=== PATIENT | male | born 1940 | race Caucasian/White ===

== ENCOUNTER 2023-07-07 16:20 | Inpatient (IN) | payer OTHER ==
[2023-07-07] MEDS ORDERED: FAMOTIDINE 20 MG/2 ML VIAL IV ONE (17:18)
[2023-07-07] MEDS ORDERED: NA CHLORIDE 0.9% 1,000 ML ONE ×2 (17:18→19:58)
[2023-07-07] MEDS ORDERED: MAGNESIUM SULFATE 1 gm IVPB 1 GM/100 ML BAG IV ONE (17:18)
--- NOTE | 2023-07-07 17:44 | RAD REPORT ---
EXAM DESCRIPTION: RAD - Chest Single View - 07/07/2023 5:32 pm CLINICAL HISTORY: CHEST PAIN COMPARISON: <Comparisons> FINDINGS: Lines: None. Lungs: No evidence of edema or pneumonia. Pleural: No significant pleural effusions or pneumothorax. Cardiac: The heart size is within normal limits. Mediastinum: Within normal limits. Bones: No acute fractures. Other: None IMPRESSION: No acute cardiopulmonary disease.
[2023-07-07 17:47] LABS: Absolute Lymphocytes (CBC) 0.8 K/uL (0.7-4.9); Absolute Monocytes 0.7 K/uL (0.1-1.3); Absolute Neutrophil 7.3 K/uL (1.8-8.0); Basophils % 0.3 % (0-1.3); Eosinophils % 0.3 % (0-4.4); Hematocrit 36.2 % (39.6-49.0); Hemoglobin 12.3 g/dL (13.6-17.9); Lymphocytes % 9.3 % (15.3-44.8); MCH 31.2 pg (27.0-35.0); MCV 91.7 fL (80-100); MPV 8.3 fL (7.6-11.3); Monocytes % 8.2 % (3.3-12.3); Neutrophils % 81.9 % (41.7-73.7); Nucleated Red Blood Cells % 0.1 % (0-0); Platelets 351 thou/uL (152-406); RBC Red Blood Cell Count 3.95 M/uL (4.33-5.43); Red Cell Distribution Width 14.2 % (12.1-15.2)
[2023-07-07] MEDS ORDERED: DIGOXIN 0.25 MG/ML AMP ONE (17:56)
[2023-07-07 17:57] LABS: PT Prothrombin Time 13.4 SECONDS (9.5-12.5); Protime INR 1.23
[2023-07-07 18:16] LABS: Albumin/Globulin Ratio 0.4 (1.1-1.8); Anion Gap 10.6 mEq/L (5.0-15.0); Bilirubin Direct 0.1 mg/dL (0-0.2); Bilirubin Indirect, Calculated 0.3 mg/dL (0.2-0.8); Bilirubin Total 0.4 mg/dL (0.2-1.0); Globulin 5.2 g/dL (2.3-3.5); Magnesium 2.4 mg/dL (1.6-2.4); Potassium 3.6 mEq/L (3.5-5.1); Protein, Total 7.2 g/dL (6.4-8.2); Troponin High Sensitivity 22.4 pg/mL (<58.9)
[2023-07-07 18:20] LABS: Thyroid Stimulating Hormone 5.58 uIU/mL (0.358-3.740)
--- NOTE | 2023-07-07 18:32 | EDPHYS ---
Physician Documentation [facility] Name: Jeff Summers Age: 83 yrs Sex: Male : 1940 Arrival Date: 07/07/2023 Time: 16:20 Bed 2 Private MD: ED Physician Eliezer Garber HPI: 07/06 16:40 This 83 yrs old Male presents to ER via EMS with complaints of AFIB w/RVR. phyllis Historical: - Allergies: 16:36 No Known Allergies; hb - Home Meds: 16:36 Victoza 2-Maurice 0.6 mg/0.1 mL (18 mg/3 mL) subcutaneous Pen Injector 1.2 mg daily hb [Active]; Tresiba FlexTouch U-100 100 unit/mL (3 mL) subcutaneous Insulin Pen 60 units daily [Active]; lisinopril 10 mg Oral tablet daily [Active]; - PMHx: 16:36 Prostate Cancer; DM2; Hypertension; hb - Immunization history:: Adult Immunizations up to date. - Social history:: Smoking status: Patient denies any tobacco usage or history of. ROS: 16:42 Constitutional: Negative for fever, chills, and weight loss, Eyes: Negative for injury, phyllis pain, redness, and discharge, ENT: Negative for injury, pain, and discharge, Neck: Negative for injury, pain, and swelling, Abdomen/GI: Negative for abdominal pain, nausea, vomiting, diarrhea, and constipation, Back: Negative for injury and pain, : Negative for injury, bleeding, discharge, and swelling, MS/Extremity: Negative for injury and deformity, Skin: Negative for injury, rash, and discoloration, Neuro: Negative for headache, weakness, numbness, tingling, and seizure, Psych: Negative for depression, anxiety, suicide ideation, homicidal ideation, and hallucinations, Allergy/Immunology: Negative for hives, rash, and allergies, Endocrine: Negative for neck swelling, polydipsia, polyuria, polyphagia, and marked weight changes, Hematologic/Lymphatic: Negative for swollen nodes, abnormal bleeding, and unusual bruising, 16:42 Cardiovascular: Positive for palpitations, 16:42 Respiratory: Positive for shortness of breath, at rest. Exam: 16:42 Constitutional: This is a well developed, well nourished patient who is awake, alert, phyllis and in no acute distress. Head/Face: Normocephalic, atraumatic. Eyes: Pupils equal round and reactive to light, extra-ocular motions intact. Lids and lashes normal. Conjunctiva and sclera are non-icteric and not injected. Cornea within normal limits. Periorbital areas with no swelling, redness, or edema. ENT: Nares patent. No nasal discharge, no septal abnormalities noted. Tympanic membranes are normal and external auditory canals are clear. Oropharynx with no redness, swelling, or masses, exudates, or evidence of obstruction, uvula midline. Mucous membranes moist. Neck: Trachea midline, no thyromegaly or masses palpated, and no cervical lymphadenopathy. Supple, full range of motion without nuchal rigidity, or vertebral point tenderness. No Meningismus. Chest/axilla: Normal chest wall appearance and motion. Nontender with no deformity. No lesions are appreciated. Respiratory: Lungs have equal breath sounds bilaterally, clear to auscultation and percussion. No rales, rhonchi or wheezes noted. No increased work of breathing, no retractions or nasal flaring. Abdomen/GI: Soft, non-tender, with normal bowel sounds. No distension or tympany. No guarding or rebound. No evidence of tenderness throughout. Back: No spinal tenderness. No costovertebral tenderness. Full range of motion. Male : Normal genitalia with no discharge or lesions. Skin: Warm, dry with normal turgor. Normal color with no rashes, no lesions, and no evidence of cellulitis. MS/ Extremity: Pulses equal, no cyanosis. Neurovascular intact. Full, normal range of motion. Neuro: Awake and alert, GCS 15, oriented to person, place, time, and situation. Cranial nerves II-XII grossly intact. Motor strength 5/5 in all extremities. Sensory grossly intact. Cerebellar exam normal. Normal gait. Psych: Awake, alert, with orientation to person, place and time. Behavior, mood, and affect are within normal limits. 16:42 Cardiovascular: Rate: tachycardic, actual rate is 107 bpm, Rhythm: regular, Pulses: no pulse deficits are appreciated, Heart sounds: normal, Edema: is not appreciated, JVD: is not appreciated, Vital Signs: 16:28 BP 92 / 66; Pulse 107; Resp 19; Temp 98.4(TE); Pulse Ox 96% on R/A; Pain 2/10; hb 17:45 BP 101 / 82; Pulse 104; Resp 18; Pulse Ox 98% on R/A; ph 18:46 BP 118 / 85; Pulse 101; Resp 18; Pulse Ox 98% on R/A; ph 19:00 BP 127 / 74; Pulse 74; Resp 22; Pulse Ox 97% on R/A; km8 19:30 BP 104 / 77; Pulse 111; Resp 22; Pulse Ox 97% on R/A; km8 20:00 BP 119 / 80; Pulse 93; Resp 16; Pulse Ox 99% on R/A; km8 20:08 Weight 92.53 kg (R); km8 20:30 BP 97 / 59; Pulse 107; Resp 16; Pulse Ox 98% on R/A; km8 20:58 BP 112 / 63; Pulse 90; Resp 20; Pulse Ox 98% on R/A; km8 16:28 Pain Scale: Adult hb MDM: 16:29 Patient medically screened. phyllis 16:47 Differential diagnosis: Anemia Anxiety Reaction asthma, Bronchitis CHF exacerbation, phyllis Chronic Obstructive Pulmonary Disease arrythmia, dehydration, stress disorder, pneumonia, Pneumothorax pulmonary edema, Pulmonary Embolism reactive airway disease, Sepsis Unstable Angina. Antibiotic administration: Not indicated. Immunization status: Pneumococcal vaccine: within last 5 years. Influenza vaccine: within last 5 years. Data reviewed: vital signs, nurses notes, EMS record, lab test result(s), EKG, radiologic studies, plain films. Consideration of Admission/Observation Patient was admitted/placed on observation. Escalation of care including admission/observation considered. I considered the following discharge prescriptions or medication management in the emergency department Medications were administered in the Emergency Department. See MAR. Independent interpretation of the following test(s) in the Emergency Department EKG: See my EKG interpretation above. Test considered but Not performed: Ultrasound NO 2 D ECHO. Historians other than the Patient: EMS: EMS WELL INFORMED. PATIENT WELL INFORMED. Care significantly affected by the following chronic conditions: Diabetes, Hypertension, Cancer. Counseling: I had a detailed discussion with the patient and/or guardian regarding the historical points, exam findings, and any diagnostic results supporting the discharge/admit diagnosis, the presence of at least one elevated blood pressure reading (>120/80) during this emergency department visit, lab results, radiology results, the need for further work-up and treatment in the hospital. 07/06 16:31 Order name: Basic Metabolic Panel [facility] 07/06 16:31 Order name: CBC with Diff; Complete Time: 18:14 [facility] 07/06 16:31 Order name: LFT's [facility] 07/06 16:31 Order name: Magnesium [facility] 07/06 16:31 Order name: NT PRO-BNP [facility] 07/06 16:31 Order name: PT-INR; Complete Time: 18:14 [facility] 07/06 16:31 Order name: Troponin HS [facility] 07/06 16:31 Order name: TSH [facility] 07/06 16:31 Order name: Urinalysis w/ reflexes [facility] 07/06 16:39 Order name: SARS RAPID [facility] 07/06 16:39 Order name: Flu [facility] 07/06 16:39 Order name: Lactate w/ 2H reflex if indic.; Complete Time: 18:14 [facility] 07/06 16:39 Order name: Blood Culture Adult (2) [facility] 07/06 18:22 Order name: T4 Free EDMS 07/06 16:31 Order name: XRAY Chest (1 view); Complete Time: 18:14 [facility] 07/06 16:31 Order name: EKG; Complete Time: 16:32 [facility] 07/06 16:31 Order name: Cardiac monitoring; Complete Time: 17:57 [facility] 07/06 16:31 Order name: EKG - Nurse/Tech; Complete Time: 17:50 [facility] 07/06 16:31 Order name: IV Saline Lock; Complete Time: 17:50 [facility] 07/06 16:31 Order name: Labs collected and sent; Complete Time: 17:50 [facility] 07/06 16:31 Order name: O2 Per Protocol; Complete Time: 17:50 [facility] 07/06 16:31 Order name: O2 Sat Monitoring; Complete Time: 17:50 [facility] 07/06 16:42 Order name: Misc. Order; Complete Time: 18:44 [facility] 07/06 16:42 Order name: Dressing - Wound: BUTTOCK; Complete Time: 18:44 [facility] Administered Medications: 17:47 Drug: Magnesium Sulfate IVPB 1 grams IVPB once over 1 hrs Route: IVPB; Infused Over: 1 ph hrs; Site: left antecubital; 19:52 Follow up: Response: No adverse reaction; IV Status: Completed infusion; IV Intake: [id number] 17:47 Drug: NS 0.9% IV 500 ml IV at bolus once Route: IV; Rate: bolus; Site: left antecubital;ph 19:52 Follow up: IV Status: Completed infusion; IV Intake: 500ml km8 18:35 Drug: Digoxin IVP 0.5 mg IVP once Route: IVP; Site: left antecubital; ph 19:52 Follow up: Response: No adverse reaction km8 18:44 Drug: NS 0.9% IV 500 ml IV at bolus once Route: IV; Rate: bolus; Site: left antecubital;ph 19:53 Follow up: IV Status: Completed infusion; IV Intake: 500ml km8 18:44 Drug: Famotidine IVP 20 mg IVP once; dilute with 10 mL 0.9% NaCl; give over 2 minutes ph Route: IVP; Site: left antecubital; 19:53 Follow up: Response: No adverse reaction km8 20:10 Drug: NS 0.9% IV 1000 ml IV at 125 ml/hr continuous Route: IV; Rate: 125 ml/hr; Site: [facility] [place] left forearm; 20:55 Follow up: IV Status: Infusion continued upon admission km8 20:10 Drug: Metoprolol IVP 2.5 mg IVP once; Hold for SBP <100 or HR <60. Route: IVP; Site: [facility] [place] left forearm; 20:55 Follow up: Response: No adverse reaction; Cardiac rhythm changed 8 20:10 Drug: fentaNYL (PF) IVP 25 mcg IVP once Route: IVP; Site: left forearm; km8 20:54 Follow up: Response: No adverse reaction; Pain is decreased 8 20:12 Drug: Metoprolol PO 25 mg PO once Route: PO; km8 20:54 Follow up: Response: No adverse reaction 8 20:12 Drug: Enoxaparin Sub-Q 1 mg/kg Sub-Q once Route: Sub-Q; Site: left lower abdomen; km8 20:54 Follow up: Response: No adverse reaction 8 20:12 Drug: Ondansetron IVP 4 mg IVP once; over 2 minutes Route: IVP; Site: left forearm; km8 20:54 Follow up: Response: No adverse reaction 8 20:55 Not Given (Hemodynamic Parameters): metoprolol2.5 mg IVP once; Hold for SBP <100 or HR km8 <60. Disposition Summary: 07/07/23 18:32 Hospitalization Ordered Notes: Hospitalization Status: Inpatient Admission phyllis Provider: Isma Loomis cha Condition: Fair phyllis Problem: new phyllis Symptoms: have improved phyllis Bed/Room Type: Standard phyllis Location: Intensive Care Unit(07/07/23 20:49) rv1 Room Assignment: 2-(07/07/23 20:49) rv1 Diagnosis - Persistent atrial fibrillation - NEW ONSET phyllis - Dyspnea phyllis - Weakness phyllis - Unspecified kidney failure - INSUFFICENCY phyllis - Type 2 diabetes mellitus with hyperglycemia phyllis Forms: - Medication Reconciliation Form phyllis - SBAR form phyllis - Leadership Thank You Letter phyllis Signatures: Dispatcher [employer] EDEliezer Johnston MD MD cha Hall, Patricia, RN RN Ines Jordan, RN RN Shawna Donnelly rv1 Lexii Gleason RN RN km8 Corrections: (The following items were deleted from the chart) 20:49 18:32 Telemetry/MedSurg (Inpatient) phyllis rv1 20:49 18:32 phyllis rv1
--- NOTE | 2023-07-07 18:32 | ER ---
Nurse's Notes [facility] Name: Jeff Summers Age: 83 yrs Sex: Male : 1940 Arrival Date: 07/07/2023 Time: 16:20 Bed 2 Private MD: Diagnosis: Persistent atrial fibrillation-NEW ONSET;Dyspnea;Weakness;Unspecified kidney failure-INSUFFICENCY;Type 2 diabetes mellitus with hyperglycemia Presentation: 07/06 16:28 Chief complaint: EMS states: Toned out for generalized weakness and malaise, initial BP hb 100/62, HR 170s, AFIB w/RVR on 12 lead. Coronavirus screen: At this time, the client does not indicate any symptoms associated with coronavirus-19. Ebola Screen: No symptoms or risks identified at this time. Initial Sepsis Screen: Does the patient meet any 2 criteria? Yes No. Patient's initial sepsis screen is negative. Does the patient have a suspected source of infection? No. Patient's initial sepsis screen is negative. Risk Assessment: Do you want to hurt yourself or someone else? Patient reports no desire to harm self or others. Onset of symptoms was July 07, 2023. 16:28 Method Of Arrival: [facility] hb 16:28 Acuity: MITCH 2 hb 16:28 Care prior to arrival: Medication(s) given: Cardizem 25 mg IVP, Labetalol 10 MG IVP IV hb initiated. 20 GA, in the left forearm, Glucose check: 128. 16:29 Transition of care: FROM HOME. hb Triage Assessment: 16:36 General: Appears in no apparent distress. Behavior is calm, cooperative. Pain: Pain hb currently is 2 out of 10 on a pain scale. Neuro: Level of Consciousness is obeys commands, lethargic, Oriented to person, place, time, situation. Cardiovascular: Patient's skin is warm and dry. Rhythm is irregular. Respiratory: Respiratory effort is even, unlabored, Respiratory pattern is regular, symmetrical. Historical: - Allergies: 16:36 No Known Allergies; hb - Home Meds: 16:36 Victoza 2-Maurice 0.6 mg/0.1 mL (18 mg/3 mL) subcutaneous Pen Injector 1.2 mg daily hb [Active]; Tresiba FlexTouch U-100 100 unit/mL (3 mL) subcutaneous Insulin Pen 60 units daily [Active]; lisinopril 10 mg Oral tablet daily [Active]; - PMHx: 16:36 Prostate Cancer; DM2; Hypertension; hb - Immunization history:: Adult Immunizations up to date. - Social history:: Smoking status: Patient denies any tobacco usage or history of. Screenin:30 Abuse screen: Denies threats or abuse. Denies injuries from another. Nutritional km8 screening: No deficits noted. 19:30 [facility] ED Fall Risk Assessment (Adult) History of falling in the last 3 months, km8 including since admission Yes- single mechanical fall (1 pt) Confusion or Disorientation No (0 pts) Intoxicated or Sedated No (0 pts) Impaired Gait Yes (1 pt) Mobility Assist Device Used No (0 pt) Altered Elimination No (0 pt) Score/Fall Risk Level 0 - 2 = Low Risk Oriented to surroundings, Maintained a safe environment, Educated pt \T\ family on fall prevention, incl call for assistance when getting out of bed, Assessed \T\ reinforced patient's understanding of fall precautions, Provided non-skid footwear, Hourly rounding (assess needs \T\ fall precautionary measures) done, Used ambulatory aids as needed (educated on \T\ assisted with). Tuberculosis screening: No symptoms or risk factors identified. Assessment: 17:30 General: Appears in no apparent distress. Behavior is calm, cooperative, Denies fever, ph feeling ill. Pain: Complains of pain in buttocks. Neuro: Level of Consciousness is awake, alert, obeys commands, Oriented to person, place, time, situation. Cardiovascular: Denies chest pain, Capillary refill < 3 seconds in bilateral fingers Patient's skin is warm and dry. Rhythm is atrial fibrillation. Respiratory: Airway is patent Respiratory effort is even, unlabored. GI: No signs and/or symptoms were reported involving the gastrointestinal system. Derm: Skin is pink, warm \T\ dry. Derm: buttocks noted to be reddened and raw in appearance. Musculoskeletal: Circulation, motion, and sensation intact. Range of motion: intact in all extremities. 19:00 Reassessment: Patient appears in no apparent distress at this time. Patient and/or km8 family updated on plan of care and expected duration. Pain level reassessed. Patient is alert, oriented x 3, equal unlabored respirations, skin warm/dry/pink. General: Appears in no apparent distress. Behavior is calm, cooperative. Pain: Complains of pain in buttocks Pain currently is 5 out of 10 on a pain scale. Neuro: Level of Consciousness is awake, alert, obeys commands, Oriented to person, place, time, situation. Cardiovascular: Patient's skin is warm and dry. Respiratory: Airway is patent Respiratory effort is even, unlabored, Respiratory pattern is regular, symmetrical. 20:00 Reassessment: Patient appears in no apparent distress at this time. No changes from km8 previously documented assessment. Patient and/or family updated on plan of care and expected duration. Pain level reassessed. Patient is alert, oriented x 3, equal unlabored respirations, skin warm/dry/pink. 20:58 Reassessment: Patient appears in no apparent distress at this time. No changes from km8 previously documented assessment. Patient and/or family updated on plan of care and expected duration. Pain level reassessed. Patient is alert, oriented x 3, equal unlabored respirations, skin warm/dry/pink. Vital Signs: 16:28 BP 92 / 66; Pulse 107; Resp 19; Temp 98.4(TE); Pulse Ox 96% on R/A; Pain 2/10; hb 17:45 BP 101 / 82; Pulse 104; Resp 18; Pulse Ox 98% on R/A; ph 18:46 BP 118 / 85; Pulse 101; Resp 18; Pulse Ox 98% on R/A; ph 19:00 BP 127 / 74; Pulse 74; Resp 22; Pulse Ox 97% on R/A; km8 19:30 BP 104 / 77; Pulse 111; Resp 22; Pulse Ox 97% on R/A; km8 20:00 BP 119 / 80; Pulse 93; Resp 16; Pulse Ox 99% on R/A; km8 20:08 Weight 92.53 kg (R); km8 20:30 BP 97 / 59; Pulse 107; Resp 16; Pulse Ox 98% on R/A; km8 20:58 BP 112 / 63; Pulse 90; Resp 20; Pulse Ox 98% on R/A; km8 16:28 Pain Scale: Adult hb ED Course: 16:22 Patient arrived in ED. eb 16:29 Eliezer Garber MD is Attending Physician. phyllis 16:34 Triage completed. hb 16:36 Arm band placed on right wrist. hb 16:39 Patient has correct armband on for positive identification. Bed in low position. Call hb light in reach. Client placed on continuous cardiac and pulse oximetry monitoring. NIBP monitoring applied. diagnostics tech on. Pulse ox on. NIBP on. Warm blanket given. lifted up in bed w/ assistance. 17:01 Amanda Martines, RN is Primary Nurse. ph 17:34 XRAY Chest (1 view) In Process Unspecified. EDMS 17:34 EKG done, by ED staff, reviewed by Eliezer Garber MD. hb 18:29 Isma Loomis MD is Hospitalizing Provider. phyllis 18:46 No provider procedures requiring assistance completed. Maintain EMS IV. Dressing ph intact. Good blood return noted. Site clean \T\ dry. Gauge \T\ site: 20 LAC. Patient admitted, IV remains in place. 20:56 Provided Education on: admission process. [facility] Administered Medications: 17:47 Drug: Magnesium Sulfate IVPB 1 grams IVPB once over 1 hrs Route: IVPB; Infused Over: 1 ph hrs; Site: left antecubital; 19:52 Follow up: Response: No adverse reaction; IV Status: Completed infusion; IV Intake: [id number] 17:47 Drug: NS 0.9% IV 500 ml IV at bolus once Route: IV; Rate: bolus; Site: left antecubital;ph 19:52 Follow up: IV Status: Completed infusion; IV Intake: 500ml [facility] 18:35 Drug: Digoxin IVP 0.5 mg IVP once Route: IVP; Site: left antecubital; ph 19:52 Follow up: Response: No adverse reaction 8 18:44 Drug: NS 0.9% IV 500 ml IV at bolus once Route: IV; Rate: bolus; Site: left antecubital;ph 19:53 Follow up: IV Status: Completed infusion; IV Intake: 500ml [facility] 18:44 Drug: Famotidine IVP 20 mg IVP once; dilute with 10 mL 0.9% NaCl; give over 2 minutes ph Route: IVP; Site: left antecubital; 19:53 Follow up: Response: No adverse reaction [facility] 20:10 Drug: NS 0.9% IV 1000 ml IV at 125 ml/hr continuous Route: IV; Rate: 125 ml/hr; Site: [facility] left forearm; 20:55 Follow up: IV Status: Infusion continued upon admission km8 20:10 Drug: Metoprolol IVP 2.5 mg IVP once; Hold for SBP <100 or HR <60. Route: IVP; Site: [facility] left forearm; 20:55 Follow up: Response: No adverse reaction; Cardiac rhythm changed km8 20:10 Drug: fentaNYL (PF) IVP 25 mcg IVP once Route: IVP; Site: left forearm; km8 20:54 Follow up: Response: No adverse reaction; Pain is decreased 8 20:12 Drug: Metoprolol PO 25 mg PO once Route: PO; km8 20:54 Follow up: Response: No adverse reaction 8 20:12 Drug: Enoxaparin Sub-Q 1 mg/kg Sub-Q once Route: Sub-Q; Site: left lower abdomen; km8 20:54 Follow up: Response: No adverse reaction 8 20:12 Drug: Ondansetron IVP 4 mg IVP once; over 2 minutes Route: IVP; Site: left forearm; km8 20:54 Follow up: Response: No adverse reaction 8 20:55 Not Given (Hemodynamic Parameters): metoprolol2.5 mg IVP once; Hold for SBP <100 or HR km8 <60. Medication: 20:56 VIS not applicable for this client. km8 Intake: 19:52 IV: 500ml; Total: 500ml. km8 19:52 IV: 50ml; Total: 550ml. km8 19:53 IV: 500ml; Total: 1050ml. km8 Outcome: 18:32 Decision to Hospitalize by Provider. phyllis 21:25 Admitted to ICU accompanied by nurse, via wheelchair, room 2, with chart, Report called km8 to REBEL Aceves 21:25 Condition: stable 21:25 Instructed on the need for admit, Demonstrated understanding of instructions, 21:33 Patient left the ED. tm6 Signatures: Dispatcher [employer] EDEliezer Johnston MD MD cha Hall, Patricia RN REBEL Ines Jordan RN RN hb Botello, Elizabeth eb Marx, Katie, RN RN [facility] Leonarda Klein RN RN tm6 Corrections: (The following items were deleted from the chart) 17:14 16:32 EKG done, by ED staff, reviewed by Eliezer Garber MD hb hb
[2023-07-07 18:53] LABS: SARS-CoV-2 Antigen CONTROL BLUE LINE VIS/BG OK; SARS-CoV-2 Antigen Rapid Res Negative (Negative)
[2023-07-07] MEDS ORDERED: ENOXAPARIN 100 MG/ML SYR SQ ONE (19:57)
[2023-07-07] MEDS ORDERED: ONDANSETRON 4 MG/2 ML VIAL ONE (19:57)
[2023-07-07] MEDS ORDERED: METOPROLOL TAR 25 MG TAB ONE (19:57)
[2023-07-07] MEDS ORDERED: FENTANYL CITR 100 MCG/2 ML ONE (19:57)
[2023-07-07] MEDS ORDERED: METOPROLOL TARTRATE 5 MG/5 ML INJ IV ONE (19:57)
--- NOTE | 2023-07-07 20:31 | P.HP ---
Certification for Inpatient Patient admitted to: Observation With expected LOS: <2 Midnights Practitioner: I am a practitioner with admitting privileges, knowledge of patient current condition, hospital course, and medical plan of care. Services: Services provided to patient in accordance with Admission requirements found in Title 42 Section 412.3 of the Code of Federal Regulations Patient History Date of Service: 07/08/23 Reason for admission: Rapid atrial fibrillation History of Present Illness: 83-year-old male patient with medical history significant for type 2 diabetes, hypertension, hyperlipidemia will came to the ED with complaint of weakness and lethargy. He also had episodes of palpitations. He was put on telemetry and found to have rapid atrial fibrillation and this is new onset. He was started on rate control medication and given therapeutic dose Lovenox and was admitted for control of A-fib and cardiology evaluation. He denied overt episode of chest pain, fever, chills, rigor, nausea, vomiting episode. Allergies No Known Allergies Allergy (Unverified 07/07/23 22:09) Review of Systems General: Weakness, Malaise Eyes: Unremarkable ENT: Unremarkable Respiratory: Unremarkable Cardiovascular: Palpitations Gastrointestinal: Unremarkable Genitourinary: Unremarkable Musculoskeletal: Unremarkable Integumentary: Unremarkable Neurological: Unremarkable Lymphatics: Unremarkable Physical Examination - Physical Exam General: Alert, Oriented x3 HEENT: Atraumatic Neck: Supple Respiratory: Normal air movement Cardiovascular: Regular rate/rhythm, Normal S1 S2 Gastrointestinal: Soft and benign Musculoskeletal: No swelling Neurological: Normal speech, Normal strength at 5/5 x4 extr - Studies Laboratory Data (last 24 hrs) 07/07/23 07/07/23 07/07/23 17:20 17:20 17:20 WBC 8.90 Hgb 12.3 L Hct 36.2 L Plt Count 351 PT 13.4 H INR 1.23 Sodium 132 L Potassium 3.6 BUN 41 H Creatinine 1.41 H Glucose 153 H Magnesium 2.4 Total Bilirubin 0.4 AST 34 ALT 19 Alkaline Phosphatase 130 H Microbiology Data (last 24 hrs): 07/07/23 16:25 Nasopharnyx Influenza Type A Antigen Screen - Final 07/07/23 16:25 Nasopharnyx Influenza Type B Antigen Screen - Final Assessment and Plan - Plan Rapid atrial fibrillation: Patient has no findings of rapid atrial fibrillation. Continue on telemetry, start therapeutic dose Lovenox for anticoagulation and trend troponin. Will obtain echocardiogram to assess cardiac function. Cardiology has been consulted for management recommendation. Since patient has converted back to sinus rhythm, will continue metoprolol 25 mg p.o. twice daily pending cardiology evaluation. Diabetes type 2: Will monitor blood sugar ACHS and continue sliding scale insulin for glucose control. Hypertension: Monitor vital signs per unit protocol and continue outpatient antihypertensive medications. Prophylaxis: Therapeutic dose Lovenox for A-fib anticoagulation and DVT prophylaxis CODE STATUS: Full code Disposition: We will treat his A-fib, have cardiology evaluate him and he will be discharged once deemed clinically stable and cleared by cardiology service. - Advance Directives Does patient have a Living Will: No Does patient have a Durable POA for Healthcare: No
[2023-07-07] MEDS: NA CHLORIDE 0.9% 1,000 ML IV SCH (21:00)
[2023-07-07] MEDS: INSULIN REGULAR (HUMAN) 100 UNIT/ML SQ SCH (21:00)
[2023-07-07 21:36] LABS: Specific Gravity 1.017 (1.005-1.030); Sqamous Epithelial None Seen /HPF (None Seen); Urine Bacteria None Seen /HPF (<20); Urine Bilirubin NEGATIVE (Negative); Urine Blood Negative (Negative); Urine Clarity Clear (Clear); Urine Color Light-Yellow (Yellow); Urine Culture Reflex Order NOT NEEDED; Urine Glucose 4+ (Negative); Urine Ketones NEGATIVE (Negative); Urine Microscopic Reflex YN ORDER UMIC; Urine Nitrite NEGATIVE (Negative); Urine Protein 1+ (Negative); Urine RBC <5 /HPF (None Seen); Urine Urobilinogen Normal (Normal); Urine WBC <5 /HPF (<5)
[2023-07-08] MEDS ORDERED: ONDANSETRON 4 MG/2 ML VIAL IV PRN (02:00)
[2023-07-08 04:59] LABS: Absolute Basophils 0.1 K/uL (0-0.5); Absolute Lymphocytes (CBC) 1.1 K/uL (0.7-4.9); Absolute Monocytes 0.8 K/uL (0.1-1.3); Absolute Neutrophil 6.4 K/uL (1.8-8.0); Basophils % 0.7 % (0-1.3); Eosinophils % 0.5 % (0-4.4); Hematocrit 35.1 % (39.6-49.0); Hemoglobin 12.1 g/dL (13.6-17.9); Lymphocytes % 13.4 % (15.3-44.8); MCH 31.8 pg (27.0-35.0); MCHC 34.5 g/dL (32.0-36.0); MCV 92.4 fL (80-100); MPV 8.1 fL (7.6-11.3); Monocytes % 9.4 % (3.3-12.3); Platelets 325 thou/uL (152-406); RBC Red Blood Cell Count 3.79 M/uL (4.33-5.43); Red Cell Distribution Width 13.9 % (12.1-15.2)
[2023-07-08 05:27] LABS: Albumin/Globulin Ratio 0.4 (1.1-1.8); Anion Gap 8.1 mEq/L (5.0-15.0); Bilirubin Total 0.3 mg/dL (0.2-1.0); Globulin 4.8 g/dL (2.3-3.5); Magnesium 2.5 mg/dL (1.6-2.4); Potassium 4.1 mEq/L (3.5-5.1); Protein, Total 6.8 g/dL (6.4-8.2); Troponin High Sensitivity 19.7 pg/mL (<58.9)
[2023-07-08] MEDS: METOPROLOL TAR 25 MG TAB PO SCH (06:24)
[2023-07-08] MEDS ORDERED: ENOXAPARIN 100 MG/ML SYR SQ ONE (08:24)
[2023-07-08] MEDS ORDERED: NA CHLORIDE 0.9% 1,000 ML ONE (08:25)
[2023-07-08] MEDS: ENOXAPARIN 100 MG/ML SYR SQ SCH (08:32)
--- NOTE | 2023-07-08 13:22 | P.PN ---
Subjective Date of Service: 07/08/23 Chief Complaint: Rapid atrial fibrillation Patient denies any complaint. He remains in atrial fibrillation but rate is controlled. He denies any chest pain or shortness of breath. Physical Examination - Vital Signs Temperature: 98.1 F Blood Pressure: 139/74 Pulse: 108 Respirations: 22 Pulse Ox (%): 98 - Studies Laboratory Data (last 24 hrs) 07/07/23 07/07/23 07/07/23 17:20 17:20 17:20 WBC 8.90 Hgb 12.3 L Hct 36.2 L Plt Count 351 PT 13.4 H INR 1.23 Sodium 132 L Potassium 3.6 BUN 41 H Creatinine 1.41 H Glucose 153 H Magnesium 2.4 Total Bilirubin 0.4 AST 34 ALT 19 Alkaline Phosphatase 130 H Microbiology Data (last 24 hrs): 07/07/23 16:25 Nasopharnyx Influenza Type A Antigen Screen - Final 07/07/23 16:25 Nasopharnyx Influenza Type B Antigen Screen - Final Assessment And Plan - Plan Physical examination General: Alert and oriented x3, NAD, HEENT: Conjunctiva not pale, anicteric sclera Neck: Supple, no elevated JVD Heart: Heart sounds 1 and 2 normal, irregular rhythm, normal rate, bilateral pedal edema. Lungs: Clear to auscultation bilaterally, adequate breath sounds bilaterally, no rhonchi or crackles. Abdomen: Soft, nondistended, nontender, normal bowel sounds. Extremities: No tenderness, no deformity Skin: Normal skin turgor, no rash, no nodules or ulcers. Neuro: No focal motor deficit. Normal speech. Psychiatry: Normal mood, no agitation. Assessment and plan Rapid atrial fibrillation Continue telemetry Continue full dose Lovenox Echocardiogram ordered Cardiology consult is pending Continue oral metoprolol. Diabetes type 2 Insulin sliding scale for glucose management Hypertension Patient started on metoprolol Continue home dose losartan. DVT prophylaxis: Full dose Lovenox CODE STATUS: Full code Disposition: Patient lives with a primary care provider and her family. He indicated he does not want to go back. Social service consult for disposition.
[2023-07-08 14:36] LABS: Magnesium 2.4 mg/dL (1.6-2.4); Phosphorus 2.6 mg/dL (2.5-4.9)
[2023-07-08] MEDS ORDERED: METOPROLOL TAR 25 MG TAB ONE (17:07)
[2023-07-09 07:52] LABS: Hematocrit 37.7 % (39.6-49.0); Hemoglobin 12.8 g/dL (13.6-17.9); Lymphocytes % 16.3 % (15.3-44.8); MCH 31.4 pg (27.0-35.0); MCV 92.4 fL (80-100); MPV 7.7 fL (7.6-11.3); Monocytes % 9.4 % (3.3-12.3); Neutrophils % 71.9 % (41.7-73.7); Platelets 400 thou/uL (152-406); RBC Red Blood Cell Count 4.08 M/uL (4.33-5.43); Red Cell Distribution Width 13.8 % (12.1-15.2)
[2023-07-09 07:53] LABS: Absolute Basophils 0.1 K/uL (0-0.5); Absolute Eosinophils 0.1 K/uL (0-0.5); Absolute Lymphocytes (CBC) 1.2 K/uL (0.7-4.9); Absolute Monocytes 0.7 K/uL (0.1-1.3); Absolute Neutrophil 5.1 K/uL (1.8-8.0); Eosinophils % 1.4 % (0-4.4)
[2023-07-09 08:09] LABS: Albumin 2.1 g/dL (3.4-5.0); Albumin/Globulin Ratio 0.4 (1.1-1.8); Anion Gap 8.3 mEq/L (5.0-15.0); Bilirubin Total 0.4 mg/dL (0.2-1.0); Potassium 4.3 mEq/L (3.5-5.1); Protein, Total 7.1 g/dL (6.4-8.2)
[2023-07-09] MEDS: lisinopriL 10 MG TAB PO SCH (08:48)
[2023-07-09] MEDS ORDERED: METOPROLOL TAR 25 MG TAB ONE (10:48)
--- NOTE | 2023-07-09 10:50 | P.PN ---
Subjective Date of Service: 07/09/23 Chief Complaint: Rapid atrial fibrillation Patient denies any complaint. Patient is still in atrial fibrillation with heart rate in the low 100s He denies any chest pain or shortness of breath. He is eating well. He states he ambulates with a walker. Physical Examination - Vital Signs Temperature: 97.2 F Blood Pressure: 131/76 Pulse: 108 Respirations: 22 Pulse Ox (%): 99 Assessment And Plan - Plan Physical examination General: Alert and oriented x3, NAD, HEENT: Conjunctiva not pale, anicteric sclera Neck: Supple, no elevated JVD Heart: Heart sounds 1 and 2 normal, irregular rhythm, pansystolic murmur, bilateral pedal edema. Lungs: Clear to auscultation bilaterally, adequate breath sounds bilaterally, no rhonchi or crackles. Abdomen: Soft, nondistended, nontender, normal bowel sounds. Extremities: No tenderness, no deformity Skin: Normal skin turgor, no rash, no nodules or ulcers. Neuro: No focal motor deficit. Normal speech. Psychiatry: Normal mood, no agitation. Assessment and plan Rapid atrial fibrillation Continue telemetry Continue full dose Lovenox Echocardiogram ordered Cardiology consulted Titrate oral metoprolol. Dose increased from 25 mg bid to 50 mg twice daily Diabetes type 2 Insulin sliding scale for glucose management Hypertension Elevated BP readings. Patient started on metoprolol Continue home dose losartan. DVT prophylaxis: Full dose Lovenox CODE STATUS: Full code Disposition: Patient lives with a resident care aid and her family. He indicated he does not want to go back. Social service consult for disposition.
[2023-07-09] MEDS: METOPROLOL TAR 25 MG TAB PO ONE (11:00)
[2023-07-09] MEDS ORDERED: FLEET ENEMA ADULT PR ONE (13:22)
[2023-07-09] MEDS: FLEET ENEMA ADULT PR ONE (13:44)
[2023-07-09] MEDS: AMIODARONE HCL 150 MG in D5W 100 ML IV STA (16:21)
[2023-07-09] MEDS: AMIODARONE HCL 900 MG in Dextrose 5%-Water 482 ML IV SCH (16:22)
--- NOTE | 2023-07-09 16:58 | CON ---
Date of Consultation: 07/09/2023 Reason For Consultation: Atrial fibrillation with rapid ventricular response. History Of Present Illness: 83-year-old male, history of diabetes, hypertension, dyslipidemia, prese nted with generalized weakness and lethargy and palpitations, found to be in atrial fibrillation with rapid ventricular response. Was started on metoprolol and Lovenox. Still in atrial fibrillation an d heart rate is running in the 110s to 120s. Denies having any chest pain, but he does have dyspnea on exertion. Past Medical History: As outlined above in the HPI. Medications: Refer to reconciliation sheet for detailed list. Allergies: NO KNOWN DRUG ALLERGIES. Family History: No premature coronary artery disease or cancer. Social History: Does not smoke or drink. Does not use any drugs. Review of Systems: All systems reviewed are negative except mentioned in HPI. Physical Examination: Vital Signs: Reviewed. Head and Neck: Pupils are equal, reactive to light. Intact eye movements. No JVD. No cervical lym phadenopathy. Neck is supple. Thyroid is not enlarged. Lungs: Clear to auscultation bilaterally. No rhonchi, rales, or crackles. No accessory muscle use. Heart: Irregularly irregular. No extra sounds. Abdomen: Soft, nontender. Bowel sounds positive. No organomegaly. No masses or hernia. No rigidi ty or rebound. Extremities: No edema, clubbing, cyanosis. Intact pulses. Skin: No rash. Neurologic: Alert, awake, oriented x3. No acute focal deficits appreciated. Investigations: Cardiac enzymes are negative. BUN 22, creatinine 1.09. Hemoglobin is 12.8. Assessment/recommendation: 1.Atrial fibrillation with rapid ventricular response. Start the patient on IV amiodarone 150 mg ov er 10 minutes bolus and then 1 mg/minute for 6 hours and then 0.5 mg/minute for 16 hours, then switch to oral 200 mg twice a day and discontinue Lovenox. Start him on Eliquis 5 mg twice a day and obtai n echocardiogram. 2.Hypertension. Blood pressure is controlled. Continue current management. 3.Elevated NT-proBNP, likely chronic heart failure. Obtain an echo to further evaluate. SR/MODL Voice ID: [id number] Report ID: [id number]
[2023-07-09] MEDS ORDERED: METOPROLOL TAR 50 MG TAB ONE (19:01)
[2023-07-09] MEDS: METOPROLOL TAR 50 MG TAB PO SCH (19:03)
[2023-07-09] MEDS: APIXABAN 5 MG TABLET PO SCH (20:29)
[2023-07-09] MEDS: HYDRALAZINE HCL 20 MG/ML VIAL IV PRN (21:20)
[2023-07-09] MEDS ORDERED: HYDRALAZINE HCL 20 MG/ML VIAL ONE (21:23)
[2023-07-10 04:43] LABS: Absolute Basophils 0.1 K/uL (0-0.5); Absolute Eosinophils 0.1 K/uL (0-0.5); Absolute Lymphocytes (CBC) 1.3 K/uL (0.7-4.9); Absolute Monocytes 0.7 K/uL (0.1-1.3); Absolute Neutrophil 3.6 K/uL (1.8-8.0); Eosinophils % 2.5 % (0-4.4); Hematocrit 37.1 % (39.6-49.0); Hemoglobin 12.7 g/dL (13.6-17.9); Lymphocytes % 22.2 % (15.3-44.8); MCH 31.5 pg (27.0-35.0); MCHC 34.2 g/dL (32.0-36.0); MCV 92.1 fL (80-100); MPV 7.8 fL (7.6-11.3); Monocytes % 11.5 % (3.3-12.3); Neutrophils % 62.8 % (41.7-73.7); Nucleated Red Blood Cells % 0.1 % (0-0); Platelets 359 thou/uL (152-406); RBC Red Blood Cell Count 4.03 M/uL (4.33-5.43)
[2023-07-10 04:56] VITALS: BMI 25.6
[2023-07-10 05:03] LABS: Albumin 2.2 g/dL (3.4-5.0); Albumin/Globulin Ratio 0.4 (1.1-1.8); Anion Gap 9.2 mEq/L (5.0-15.0); Bilirubin Total 0.4 mg/dL (0.2-1.0); Potassium 4.2 mEq/L (3.5-5.1); Protein, Total 7.2 g/dL (6.4-8.2)
--- NOTE | 2023-07-10 07:08 | P.PN ---
Date of Service: 07/10/23 Subjective: no acute events overnight converted to sinus rhythm yesterday, on amio drip tired this morning to start PT eval today ROS: 10 point ROS as noted above, otherwise negative Physical Exam: GEN: Alert, oriented, NAD HEENT: Normal conjunctiva, sclera anicteric CV: Regular rate and rhythm, pansystolic murmur, trace bilateral pedal edema Pulm: Nonlabored respirations on room air, clear bilaterally ABD: Soft, nontender, nondistended Neuro: Normal speech, normal affect vitals reviewed Problem List: Atrial fibrillation with RVR, on eliquis IDDM2 Hypertension Atrial fibrillation with RVR, on eliquis troponins were negative x3, monitor on telemetry Echo ordered to eval EF / stenosis Cardiology is following continue amio drip; started 07/08 per cardio plan to transition to oral amio 200 mg BID tonight Lovenox transitioned to eliquis 07/08 HR improved. rate controlled in 60-70s IDDM2 Accu-checks, Sliding scale insulin Hypertension continue home lisinopril hydralazine PRN VTE: Eliquis Code: Full Dispo: SNF - Pending choice / auth ss/cm consulted
[2023-07-10] MEDS ORDERED: INSULIN REGULAR (HUMAN) 100 UNIT/ML ONE ×3 (11:50→20:35)
--- NOTE | 2023-07-10 15:24 | P.PN ---
Subjective Date of Service: 07/10/23 Chief Complaint: Rapid atrial fibrillation Subjective: No new changes Review of Systems 10-point ROS is otherwise unremarkable Physical Examination - Vital Signs Temperature: 97.4 F Blood Pressure: 140/56 Pulse: 80 Respirations: 16 Pulse Ox (%): 99 - Physical Exam General: Alert, Oriented x3 HEENT: Atraumatic Neck: Supple Respiratory: Clear to auscultation bilaterally Cardiovascular: No edema, Normal S1 S2 Gastrointestinal: Normal bowel sounds Assessment And Plan - Current Problems (Diagnosis) (1) Atrial fibrillation with rapid ventricular response Current Visit: Yes Status: Acute Plan: patient is in sinus rhythm D/C amiodarone drip and start amiodarone 200 mg po BID start lopressor 25 mg po BID continue Eliquis 5 mg po BID
[2023-07-10] MEDS ORDERED: AMIODARONE HCL 200 MG TAB ONE ×2 (15:35→19:57)
[2023-07-10] MEDS: AMIODARONE HCL 200 MG TAB PO SCH (15:38)
[2023-07-10] MEDS ORDERED: METOPROLOL TAR 25 MG TAB ONE (16:24)
[2023-07-10] MEDS: METOPROLOL TAR 25 MG TAB PO SCH (16:27)
[2023-07-11 05:13] LABS: Anion Gap 10.3 mEq/L (5.0-15.0); Magnesium 1.9 mg/dL (1.6-2.4); Potassium 4.3 mEq/L (3.5-5.1)
[2023-07-11] MEDS ORDERED: INSULIN REGULAR (HUMAN) 100 UNIT/ML ONE ×3 (08:01→17:04)
[2023-07-11] MEDS ORDERED: INSULIN GLARGINE 100 UNIT/ML SQ ONE ×3 (08:01→17:04)
[2023-07-11] MEDS ORDERED: AMIODARONE HCL 200 MG TAB ONE (08:02)
[2023-07-11] MEDS: INSULIN GLARGINE 100 UNIT/ML SQ SCH (08:06)
[2023-07-11] MEDS: MAGNESIUM SULFATE 1 gm IVPB 1 GM/100 ML BAG IV ONE (08:07)
--- NOTE | 2023-07-11 09:10 | P.PN ---
Date of Service: 07/11/23 Subjective: in sinus rhythm with HR in 70-80s no acute events overnight breathing okay on room air some occasional PACs noted yesterday feels like he's improving, but slowly; no new/worsening symptoms downgraded from ICU yesterday ROS: 10 point ROS as noted above, otherwise negative Physical Exam: GEN: Alert, oriented, NAD HEENT: Normal conjunctiva, sclera anicteric CV: Regular rate and rhythm, pansystolic murmur, trace bilateral pedal edema Pulm: Nonlabored respirations on room air, clear bilaterally ABD: Soft, nontender, nondistended Neuro: Normal speech, normal affect vitals reviewed Problem List: Atrial fibrillation with RVR, on eliquis; new onset IDDM2 Hypertension Atrial fibrillation with RVR, on eliquis; new onset troponins were negative x3, monitor on telemetry Echo (07/09): 53% EF, moderate diastolic dysfunction, mild TR/MR Cardiology is following amio drip transitioned to oral amio 200 mg BID (07/09) continue PO metoprolol; (re)added 07/09 continue eliquis in normal sinus rhythm. HR improved. rate controlled in 60-70s IDDM2 Accu-checks, Sliding scale insulin hyperglycemic - pt states he has been more hungry lately; not on his usual tresiba start semglee 07/10. titrate as needed Hypertension continue home lisinopril hydralazine PRN VTE: Eliquis Code: Full Dispo: SNF - Pending choice / auth ss/cm consulted
--- NOTE | 2023-07-11 09:16 | ECHO ---
HEIGHT: 6 ft 0 in WEIGHT: 188 lb 12.8 oz DATE OF STUDY: 07/10/[address]: Jeff Ann MD 2-DIMENSIONAL: YES M.MODE: YES DOPPLER: YES COLOR FLOW: YES TDS: NO PORTABLE: YES DEFINITY: NO BUBBLE STUDY: NO DIAGNOSIS: NEW ONSET ATRIAL FIBRILLATION CARDIAC HISTORY: CATHERIZATION: NO SURGERY: NO PROSTHETIC VALVE: NO PACEMAKER: NO MEASUREMENTS (cm) DIASTOLIC (NORMALS) SYSTOLIC (NORMALS) IVSd 1.1 (0.6-1.2) LA Diam 3.1 (1.9-4.0) LVEF 53% LVIDd 3.4 (3.5-5.7) LVIDs 2.5 (2.0-3.5) %FS 27% LVPWd 1.2 (0.6-1.2) Ao Diam 3.0 (2.0-3.7) 2 DIMENSIONAL ASSESSMENT: RIGHT ATRIUM: NORMAL LEFT ATRIUM: NORMAL RIGHT VENTRICLE: NORMAL LEFT VENTRICLE: NORMAL TRICUSPID VALVE: MILD TRICUSPID REGURGITATION MITRAL VALVE: MILD MITRAL ANNULAR CALFICIACTION WITH MILD MITRAL REGURGITATION PULMONIC VALVE: NORMAL AORTIC VALVE: NORMAL PERICARDIAL EFFUSION: NONE AORTIC ROOT: NORMAL LEFT VENTRICULAR WALL MOTION: NORMAL DOPPLER/COLOR FLOW: SEE BELOW. COMMENTS: 1. NORMAL LEFT VENTRICULAR EJECTION FRACTION 55-60%. 2. MODERATE DIASTOLIC DYSFUNCTION. 3. MILD TRICUSPID REGURGITATION. 4. MILD MITRAL REGURGITATION. TECHNOLOGIST: CHICHO GUTHRIE
[2023-07-11] MEDS ORDERED: METOPROLOL TAR 25 MG TAB ONE (17:03)
--- NOTE | 2023-07-11 17:11 | P.PN ---
Subjective Date of Service: 07/11/23 Chief Complaint: Rapid atrial fibrillation Subjective: No new changes Review of Systems 10-point ROS is otherwise unremarkable Physical Examination - Vital Signs Temperature: 97.5 F Blood Pressure: 128/63 Pulse: 77 Respirations: 19 Pulse Ox (%): 97 - Physical Exam General: Alert, Oriented x3 HEENT: Atraumatic Neck: Supple Respiratory: Clear to auscultation bilaterally Cardiovascular: No edema, Normal S1 S2 Gastrointestinal: Normal bowel sounds Assessment And Plan - Current Problems (Diagnosis) (1) Atrial fibrillation with rapid ventricular response Current Visit: Yes Status: Acute Plan: patient is in sinus rhythm continue amiodarone 200 mg po BID start lopressor 25 mg po BID continue Eliquis 5 mg po BID
[2023-07-11] MEDS: AMIODARONE HCL 150 MG in D5W 100 ML IV STA (19:00)
[2023-07-11] MEDS: AMIODARONE HCL 900 MG in Dextrose 5%-Water 482 ML IV SCH (19:15)
[2023-07-12 04:52] LABS: Hematocrit 34.3 % (39.6-49.0); Hemoglobin 11.8 g/dL (13.6-17.9); MCH 31.6 pg (27.0-35.0); MCHC 34.4 g/dL (32.0-36.0); MPV 7.6 fL (7.6-11.3); Platelets 376 thou/uL (152-406); RBC Red Blood Cell Count 3.73 M/uL (4.33-5.43); Red Cell Distribution Width 13.9 % (12.1-15.2)
[2023-07-12 05:09] LABS: Magnesium 1.8 mg/dL (1.6-2.4)
[2023-07-12] MEDS: INSULIN GLARGINE 100 UNIT/ML SQ SCH (07:30)
[2023-07-12] MEDS ORDERED: lisinopriL 10 MG TAB ONE (08:01)
[2023-07-12] MEDS ORDERED: APIXABAN 5 MG TABLET ONE (08:01)
[2023-07-12] MEDS ORDERED: AMIODARONE HCL 200 MG TAB ONE (08:01)
[2023-07-12] MEDS ORDERED: DOCUSATE NA 100 MG CAP PO ONE (08:09)
[2023-07-12] MEDS: DOCUSATE NA 100 MG CAP PO SCH (08:09)
--- NOTE | 2023-07-12 08:48 | P.PN ---
Date of Service: 07/12/23 Subjective: Patient went back into a-fib yesterday pm and was briefly put back on amio drip / re-bolused converted back into normal sinus rhythm shortly after IV amio bolus finished. amio drip stopped per patients request secondary to pain / burning sensation at IV site HR improved. rate controlled in 70s otherwise no new/worsening symptoms ROS: 10 point ROS as noted above, otherwise negative Physical Exam: GEN: Alert, oriented, NAD HEENT: Normal conjunctiva, sclera anicteric CV: Regular rate and rhythm, +pansystolic murmur, trace bilateral pedal edema Pulm: Nonlabored respirations on room air, clear bilaterally ABD: Soft, nontender, nondistended Neuro: Normal speech, normal affect vitals reviewed Problem List: Atrial fibrillation with RVR, on eliquis; new onset IDDM2 Hypertension Atrial fibrillation with RVR, on eliquis; new onset troponins were negative x3 Echo (07/09): 53% EF, moderate diastolic dysfunction, mild TR/MR Cardiology is following amio drip transitioned to oral amio (07/09) given amio bolus and restarted on amio drip 07/10 pm per cardiology after patient went back into a-fib. converted back into normal sinus rhythm shortly after IV amio bolus finished. HR improved. rate controlled in 60-70s IV amiodarone stopped 07/11 per patients request secondary to arm pain / burning sensation continue PO amiodarone 200 mg BID continue PO metoprolol; (re)added 07/09 continue eliquis IDDM2 Accu-checks, Sliding scale insulin hyperglycemic - pt states he has been more hungry lately; not on his usual tresiba adjust semglee. titrate as needed Hypertension continue home lisinopril hydralazine PRN VTE: Eliquis Code: Full Dispo: SNF - Pending auth ss/cm consulted
--- NOTE | 2023-07-12 13:13 | P.PN ---
Subjective Date of Service: 07/12/23 Chief Complaint: Rapid atrial fibrillation Subjective: No new changes (patient went into AF yesterday, amiodarone 150 mg was given and started on drip that was later stopped due IV line problems but patient is in sinus rhythm now.) Review of Systems 10-point ROS is otherwise unremarkable Physical Examination - Vital Signs Temperature: 97 F Blood Pressure: 140/64 Pulse: 92 Respirations: 16 Pulse Ox (%): 97 - Physical Exam General: Alert HEENT: Atraumatic Neck: Supple Respiratory: Clear to auscultation bilaterally Cardiovascular: No edema, Normal S1 S2 Gastrointestinal: Normal bowel sounds Assessment And Plan - Current Problems (Diagnosis) (1) Atrial fibrillation with rapid ventricular response Current Visit: Yes Status: Acute Plan: patient is in sinus rhythm continue amiodarone 200 mg po BID start lopressor 25 mg po BID continue Eliquis 5 mg po BID
[2023-07-12] MEDS: METOPROLOL TAR 25 MG TAB PO SCH (17:13)
[2023-07-13 04:30] LABS: Anion Gap 7.3 mEq/L (5.0-15.0); Magnesium 1.9 mg/dL (1.6-2.4); Potassium 4.3 mEq/L (3.5-5.1)
--- NOTE | 2023-07-13 09:23 | P.PN ---
Date of Service: 07/13/23 Subjective: Feeling better today in and out of a-fib yesterday; rate controlled. currently in normal sinus rhythm with HR in 60s. +occasional PAC reported overnight per telemetry hungry - asking for oatmeal with every meal if possible ROS: 10 point ROS as noted above, otherwise negative Physical Exam: GEN: Alert, oriented, NAD HEENT: Normal conjunctiva, sclera anicteric CV: Regular rate and rhythm with PACs, +pansystolic murmur, trace bilateral pedal edema Pulm: Nonlabored respirations on room air, clear bilaterally ABD: Soft, nontender, nondistended Integumentary: R forearm with redness, mild tenderness Neuro: Normal speech, normal affect vitals reviewed Problem List: Atrial fibrillation with RVR, on eliquis; new onset IDDM2 Hypertension Debility Atrial fibrillation with RVR, on eliquis; new onset troponins negative x3 Echo (07/09): 53% EF, moderate diastolic dysfunction, mild TR/MR Cardiology is following amio drip transitioned to oral amio (07/09); restarted with drip on 07/10 pm per cardio after back in afib back into sinus rhythm after bolus HR improved. rate controlled in 60-70s IV amiodarone stopped 07/11 per patients request secondary to arm pain / burn ing sensation continue PO amiodarone 200 mg BID continue PO metoprolol; (re)added 07/09 continue eliquis IDDM2 Accu-checks, Sliding scale insulin hyperglycemic - pt states he has been more hungry lately; not on his usual tresiba adjust semglee. titrate as needed Hypertension continue home lisinopril hydralazine PRN Debility has not ambulated this hospitalization. PT consulted a few days. To work with him again today VTE: Eliquis Code: Full Dispo: SNF - Pending auth ss/cm consulted
--- NOTE | 2023-07-13 17:28 | EKG ---
Test Date: 2023-07-11 Test Time: 18:00:04 Accountancy Professor: AYAKA MEASUREMENT RESULTS: Intervals: Rate: 127 [place]: QRSD: 126 QT: 342 QTc: 497 Helm: P: [place]: QRS: 39 T: 5 INTERPRETIVE STATEMENTS: Atrial fibrillation with rapid ventricular response with premature ventricular or aberrantly conducted complexes Right bundle branch block Abnormal ECG Compared to ECG 07/07/2023 17:34:03 Ventricular premature complex(es) now present Electronically Signed On 07-13-23 17:21:45 CDT by Jacinto Costello
--- NOTE | 2023-07-13 17:47 | EKG ---
Test Date: 2023-07-07 Test Time: 17:34:03 Intensivist: JUSTUS MEASUREMENT RESULTS: Intervals: Rate: 105 [place]: QRSD: 120 QT: 372 QTc: 491 [place]: P: [place]: QRS: 79 T: 51 INTERPRETIVE STATEMENTS: Atrial fibrillation Right bundle branch block Abnormal ECG No previous ECG available for comparison Electronically Signed On 07-13-23 17:30:40 CDT by Jacinto Costello
--- NOTE | 2023-07-13 21:10 | PN ---
Date of Progress Note: 07/13/2023 Subjective: Seen by bedside. His heart rate is controlled. He went into AFib again, re-loaded amio darone and back in sinus. Review of Systems: No chest pain, shortness of breath, orthopnea, or cough. No nausea, vomiting, or diarrhea. No abdom inal pain. No dysuria, polyuria, or urinary urgency. All other systems were reviewed, they were neg ative. Objective: Vital Signs: Reviewed. Head and Neck: Pupils are equal, reactive to light. Intact eye movements. No JVD. No cervical lym phadenopathy. Neck is supple. Thyroid is not enlarged. Lungs: Clear to auscultation bilaterally. No rhonchi, wheezing, or crackles. No accessory muscle u se. Heart: Irregular. No extra sounds. Abdomen: Soft, nontender. Bowel sounds positive. No organomegaly. No masses or hernia. No rigidi ty or rebound. Extremities: No edema, clubbing, or cyanosis. Intact pulses. Skin: No rash or nodule. Neurologic: Alert, awake, oriented x3. No acute focal deficits appreciated. Investigations: BUN is 14, creatinine 0.9, and hemoglobin 11.8. Assessment And Recommendations: 1.Atrial fibrillation with rapid ventricular response, now this issue is controlled. Continue amiod arone and Eliquis as well as metoprolol. 2.Hypertension. Blood pressure is controlled. Continue home medications. 3.Diabetes. Sugars will be monitored. I will recommend to start on . SR/MODL Voice ID: [id number] Report ID: [id number]
--- NOTE | 2023-07-14 07:23 | P.PN ---
Date of Service: 07/14/23 Subjective: stable; remains in normal sinus rhythm with occasional PACs on tele rate controlled, HR in 60-70s. ambulated yesterday with PT for first time this hospitalization no episodes of a-fib overnight ROS: 10 point ROS as noted above, otherwise negative Physical Exam: GEN: Alert, oriented, NAD HEENT: Normal conjunctiva, sclera anicteric CV: Regular rate and rhythm with PACs, +pansystolic murmur, trace bilateral pedal edema Pulm: Nonlabored respirations on room air, clear bilaterally ABD: Soft, nontender, nondistended Integumentary: R forearm with redness, mild tenderness Neuro: Normal speech, normal affect vitals reviewed Problem List: Atrial fibrillation with RVR, on eliquis; new onset IDDM2 Hypertension Debility Atrial fibrillation with RVR, on eliquis; new onset Echo (07/09): 53% EF, moderate diastolic dysfunction, mild TR/MR Cardiology following amio drip transitioned to oral amio (07/09); restarted with drip on 07/10 pm per cardio after back in afib back into sinus rhythm after bolus HR improved. rate controlled in 60-70s IV amiodarone stopped 07/11 per patients request secondary to arm pain / burning sensation continue PO amiodarone 200 mg BID continue PO metoprolol; (re)added 07/09 continue eliquis stable IDDM2 Accu-checks, Sliding scale insulin hyperglycemic - pt states he has been more hungry lately; not on his usual tr esiba adjust semglee. titrate as needed Hypertension continue home lisinopril hydralazine PRN Debility has not ambulated much this hospitalization. continue PT - ambulated yesterday with PT. Noted some unsteady gait VTE: Eliquis Code: Full Dispo: SNF in [place] - near son - Pending auth ss/cm consulted
--- NOTE | 2023-07-15 09:24 | P.PN ---
Date of Service: 07/15/23 Subjective: stable. in sinus rhythm, rate controlled, HR in 60-70s no further episodes of a-fib overnight no acute events overnight no chest pain dispo pending SNF auth ROS: 10 point ROS as noted above, otherwise negative Physical Exam: GEN: Alert, oriented, NAD HEENT: Normal conjunctiva, sclera anicteric CV: Regular rate and rhythm, +pansystolic murmur, trace bilateral pedal edema Pulm: Nonlabored respirations on room air, clear bilaterally ABD: Soft, nontender, nondistended Integumentary: Stage 3 sacral pressure ulcer, dressing in place Neuro: Normal speech, normal affect vitals reviewed Problem List: Atrial fibrillation with RVR, on eliquis; new onset Stage 3 sacral pressure ulcer; present on admission IDDM2 Hypertension Debility Atrial fibrillation with RVR, on eliquis; new onset Echo (07/09): 53% EF, moderate diastolic dysfunction, mild TR/MR Cardiology following amio drip transitioned to oral amio (07/09); restarted with drip on 07/10 pm per cardio after back in afib back into sinus rhythm after bolus HR improved. rate controlled in 60-70s IV amiodarone stopped 07/11 per patients request secondary to arm pain / burning sensation continue PO amiodarone 200 mg BID continue PO metoprolol; (re)added 07/09 continue eliquis stable. no reported episodes of a-fib in > 24 hrs Stage 3 sacral pressure ulcer Pressure offloading measures. frequent turning q2h continue local wound care. IDDM2 Accu-checks, Sliding scale insulin hyperglycemic - pt states he has been more hungry lately; not on his usual edvin iba adjust semglee. Hypertension continue home lisinopril hydralazine PRN Debility has not ambulated much this hospitalization. continue PT - ambulated 15-20 feet on 07/12 with PT. Noted some unsteady gait VTE: Eliquis Code: Full Dispo: SNF in [place] - near son - Pending auth ss/cm consulted
[2023-07-15] MEDS: FLEET ENEMA ADULT PR ONE (13:50)
[2023-07-16 06:18] LABS: Absolute Basophils 0.1 K/uL (0-0.5); Absolute Eosinophils 0.2 K/uL (0-0.5); Absolute Lymphocytes (CBC) 1.4 K/uL (0.7-4.9); Absolute Monocytes 0.4 K/uL (0.1-1.3); Absolute Neutrophil 2.9 K/uL (1.8-8.0); Eosinophils % 4.7 % (0-4.4); Hematocrit 36.4 % (39.6-49.0); Hemoglobin 12.5 g/dL (13.6-17.9); Lymphocytes % 28.8 % (15.3-44.8); MCH 31.4 pg (27.0-35.0); MCHC 34.3 g/dL (32.0-36.0); MCV 91.7 fL (80-100); MPV 7.7 fL (7.6-11.3); Neutrophils % 57.5 % (41.7-73.7); Nucleated Red Blood Cells % 0.1 % (0-0); Platelets 401 thou/uL (152-406); RBC Red Blood Cell Count 3.97 M/uL (4.33-5.43); Red Cell Distribution Width 13.7 % (12.1-15.2)
[2023-07-16 06:32] LABS: Magnesium 2.1 mg/dL (1.6-2.4)
[2023-07-16] MEDS: INSULIN GLARGINE 100 UNIT/ML SQ SCH (08:37)
--- NOTE | 2023-07-16 11:13 | P.PN ---
Date of Service: 07/16/23 Subjective: stable. in sinus rhythm, rate controlled, HR in 60-70s no further episodes of a-fib. no chest pain ambulating around the floor with PT today no new / worsening problems ROS: 10 point ROS as noted above, otherwise negative Physical Exam: GEN: Alert, oriented, NAD HEENT: Normal conjunctiva, sclera anicteric CV: Regular rate and rhythm, +pansystolic murmur, trace bilateral pedal edema Pulm: Nonlabored respirations on room air, clear bilaterally ABD: Soft, nontender, nondistended Integumentary: Stage 3 sacral pressure ulcer, dressing in place Neuro: Normal speech, normal affect vitals reviewed Problem List: Atrial fibrillation with RVR, on eliquis; new onset Stage 3 sacral pressure ulcer; present on admission IDDM2 Hypertension Debility Atrial fibrillation with RVR, on eliquis; new onset Echo (07/09): 53% EF, moderate diastolic dysfunction, mild TR/MR Cardiology following amio drip transitioned to oral amio (07/09); restarted with drip on 07/10 pm per cardio after back in afib back into sinus rhythm after bolus HR improved. rate controlled in 60-70s IV amiodarone stopped 07/11 per patients request secondary to arm pain / burning sensation continue PO amiodarone 200 mg BID continue PO metoprolol; (re)added 07/09 continue eliquis stable. no reported episodes of a-fib in > 24 hrs Stage 3 sacral pressure ulcer; present on admission Pressure offloading measures. frequent turning q2h continue local wound care. IDDM2 Accu-checks, Sliding scale insulin hyperglycemic - pt states he has been more hungry lately; not on his usual tresiba adjust semglee. Hypertension continue home lisinopril hydralazine PRN Debility has not ambulated much this hospitalization. continue PT VTE: Eliquis Code: Full Dispo: SNF in [place] - near son - Pending auth ss/cm consulted
[2023-07-17] MEDS: PETROLATUM (AQUAPHOR) JAR 396 GRAM TOP SCH (13:52)
--- NOTE | 2023-07-17 14:17 | EKG ---
Test Date: 2023-07-12 Test Time: 16:18:20 Manufacturing Cost Estimator: JAY MEASUREMENT RESULTS: Intervals: Rate: 81 GA: QRSD: 120 QT: 416 QTc: 483 [place]: P: GA: QRS: 31 T: 34 INTERPRETIVE STATEMENTS: Atrial fibrillation Nonspecific intraventricular conduction delay Abnormal ECG Compared to ECG 07/11/2023 18:00:04 Intraventricular conduction delay now present Ventricular premature complex(es) no longer present Right bundle-branch block no longer present Electronically Signed On 07-17-23 14:08:25 CDT by Jacinto Costello
--- NOTE | 2023-07-17 14:53 | P.PN ---
Subjective Date of Service: 07/17/23 Chief Complaint: Rapid atrial fibrillation Patient denies any complaint. Patient remains in sinus. He denies any chest pain or shortness of breath. He is eating well. Physical Examination - Vital Signs Temperature: 97.4 F Blood Pressure: 177/84 Pulse: 63 Respirations: 16 Pulse Ox (%): 99 Assessment And Plan - Plan Physical Exam: GEN: Alert, oriented, NAD HEENT: Normal conjunctiva, sclera anicteric CV: Regular rate and rhythm, +pansystolic murmur, trace bilateral pedal edema Pulm: clear bilaterally, adequate breath sounds bilaterally. ABD: Soft, nontender, nondistended Integumentary: Stage 3 sacral pressure ulcer, dressing in place Neuro: Normal speech, normal affect vitals reviewed Problem List: Atrial fibrillation with RVR, on eliquis; new onset Stage 3 sacral pressure ulcer; present on admission IDDM2 Hypertension Debility Atrial fibrillation with RVR, on eliquis; new onset Echo (07/09): 53% EF, moderate diastolic dysfunction, mild TR/MR Cardiology following amio drip transitioned to oral amio (07/09); restarted with drip on 07/10 pm per cardio after back in afib back into sinus rhythm after bolus HR improved. rate controlled in 60-70s IV amiodarone stopped 07/11 per patients request secondary to arm pain / burning sensation Currently in sinus rhythm continue PO amiodarone 200 mg BID continue PO metoprolol. continue eliquis stable. Stage 3 sacral pressure ulcer; present on admission Pressure offloading measures. frequent turning q2h continue local wound care. IDDM2 Accu-checks, Sliding scale insulin hyperglycemic Titrate semglee. Hypertension continue home lisinopril hydralazine PRN Debility has not ambulated much this hospitalization. continue PT VTE: Eliquis Code: Full Dispo: SNF in [place] - near son - Pending auth ss/cm consulted
[2023-07-18 04:43] LABS: Anion Gap 6.8 mEq/L (5.0-15.0); Potassium 4.8 mEq/L (3.5-5.1)
--- NOTE | 2023-07-18 15:37 | P.PN ---
Subjective Date of Service: 07/18/23 Chief Complaint: Rapid atrial fibrillation Patient denies any complaint. Patient remains in sinus. Physical Examination - Vital Signs Temperature: 97.9 F Blood Pressure: 135/57 Pulse: 71 Respirations: 18 Pulse Ox (%): 97 Assessment And Plan - Plan Physical Exam: GEN: Alert, oriented, NAD HEENT: Normal conjunctiva, sclera anicteric CV: Regular rate and rhythm, +pansystolic murmur, trace bilateral pedal edema Pulm: clear bilaterally, adequate breath sounds bilaterally. ABD: Soft, nontender, nondistended Integumentary: Stage 3 sacral pressure ulcer, dressing in place Neuro: Normal speech, normal affect vitals reviewed Diagnosis Atrial fibrillation with RVR, new onset Stage 3 sacral pressure ulcer; present on admission IDDM2 Hypertension Debility Atrial fibrillation with RVR, on eliquis; new onset Echo (07/09): 53% EF, moderate diastolic dysfunction, mild TR/MR Cardiology following Status post amiodarone drip Patient spontaneously converted to sinus rhythm. Patient has remained in sinus rhythm. On PO amiodarone 200 mg BID continue PO metoprolol. continue eliquis stable. Stage 3 sacral pressure ulcer; present on admission Pressure offloading measures. frequent turning q2h continue local wound care. IDDM2 Accu-checks, Sliding scale insulin Titrate semglee to treat hyperglycemia. Hypertension continue home lisinopril Debility continue PT VTE: Eliquis Code: Full Dispo: SNF in [place], awaiting insurance authorization ss/cm is assisting with arrangement.
[2023-07-18] MEDS: INSULIN GLARGINE 100 UNIT/ML SQ SCH (21:54)
[2023-07-19] MEDS ORDERED: INSULIN GLARGINE 100 UNIT/ML SQ SCH (09:00)
--- NOTE | 2023-07-19 15:15 | P.PN ---
Subjective Date of Service: 07/19/23 Chief Complaint: Rapid atrial fibrillation Patient has no new complaint. Patient remains in sinus rhythm. Physical Examination - Vital Signs Temperature: 97.1 F Blood Pressure: 130/60 Pulse: 55 Respirations: 18 Pulse Ox (%): 98 Assessment And Plan - Plan Physical Exam: GEN: Alert, oriented, NAD CV: Regular rate and rhythm, +pansystolic murmur, trace bilateral pedal edema Pulm: clear bilaterally, adequate breath sounds bilaterally. ABD: Soft, nontender, nondistended Integumentary: Stage 3 sacral pressure ulcer with clean dressing Neuro: No focal motor deficit. vitals reviewed Diagnosis Atrial fibrillation with RVR, new onset Stage 3 sacral pressure ulcer; present on admission IDDM2 Hypertension Debility Atrial fibrillation with RVR, on eliquis; new onset Echo (07/09): 53% EF, moderate diastolic dysfunction, mild TR/MR Cardiology following Status post amiodarone drip Patient spontaneously converted to sinus rhythm and has remained in sinus rhythm Stable on PO amiodarone 200 mg BID continue PO metoprolol. continue eliquis Stage 3 sacral pressure ulcer; present on admission Pressure offloading measures. frequent turning q2h continue local wound care. IDDM2 Accu-checks, Sliding scale insulin Titrating semglee to treat hyperglycemia. Hypertension continue home lisinopril Debility continue PT VTE: Eliquis Code: Full Dispo: SNF in [place], awaiting insurance authorization
[2023-07-20 07:16] LABS: Absolute Basophils 0.1 K/uL (0-0.5); Absolute Eosinophils 0.2 K/uL (0-0.5); Absolute Lymphocytes (CBC) 1.5 K/uL (0.7-4.9); Absolute Monocytes 0.8 K/uL (0.1-1.3); Basophils % 0.8 % (0-1.3); Eosinophils % 2.4 % (0-4.4); Hematocrit 36.7 % (39.6-49.0); Hemoglobin 12.6 g/dL (13.6-17.9); MCH 31.5 pg (27.0-35.0); MCHC 34.4 g/dL (32.0-36.0); MCV 91.7 fL (80-100); MPV 8.2 fL (7.6-11.3); Monocytes % 10.2 % (3.3-12.3); Neutrophils % 66.6 % (41.7-73.7); Platelets 319 thou/uL (152-406); RBC Red Blood Cell Count 4.01 M/uL (4.33-5.43); Red Cell Distribution Width 13.6 % (12.1-15.2)
[2023-07-20 07:34] LABS: Anion Gap 13.3 mEq/L (5.0-15.0); Potassium 4.3 mEq/L (3.5-5.1)
[2023-07-21] MEDS: ACETAMINOPHEN 325 MG TABLET PO PRN (02:01)
[2023-07-23] MEDS: TAMSULOSIN 0.4 MG SR CAP PO ONE (03:42)
--- NOTE | 2023-07-23 05:07 | P.PN ---
Subjective Date of Service: 07/20/23 Patient was seen and examined.Events of the last 24 hours noted. Case management is working on placement at this time. We discussed the case with his son. Review of Systems 10-point ROS is otherwise unremarkable Physical Examination - Vital Signs Temperature: 98.1 F Blood Pressure: 112/52 Pulse: 67 Respirations: 20 Pulse Ox (%): 100 - Physical Exam General: Alert, In no apparent distress, Oriented x3 Respiratory: Clear to auscultation bilaterally, Normal air movement Cardiovascular: Regular rate/rhythm, Normal S1 S2, No murmurs Gastrointestinal: Normal bowel sounds, Soft and benign, Non-distended, No tenderness Musculoskeletal: No clubbing, No swelling, No tenderness Neurological: Sensation intact, Cranial nerves 3-12 intact - Studies Medications List Reviewed: Yes Assessment & Plan - Problems (Diagnosis) (1) Atrial fibrillation with rapid ventricular response Current Visit: Yes Status: Acute (2) DM2 (diabetes mellitus, type 2) Current Visit: Yes Status: Acute (3) HTN (hypertension) Current Visit: Yes Status: Acute (4) Prostate cancer Current Visit: Yes Status: Acute - Plan Plan: 1. Patient with generalized weakness and debility; unable to go home as he is unable to care for himself. Patient's son was not reachable and tried to contact him so we can discuss placement. 2. History of atrial fibrillation; rate control 3. History of hypertension/type 2 diabetes; strict blood pressure and blood sugar control 4. History of prostate cancer; in remission 5. GI DVT prophylaxis Discharge Plan: Home Plan to discharge in: Greater than 2 days - Advance Directives Does patient have a Living Will: No Does patient have a Durable POA for Healthcare: No - Code Status/Comfort Care Code Status Assessed: Yes Code Status: Full Code Critical Care: No Time Spent Managing PTS Care (In Minutes): 35
--- NOTE | 2023-07-23 05:10 | P.PN ---
Subjective Date of Service: 07/21/23 Patient is clinically stable with no new changes. Still awaiting for placement. Unfortunately patient awaiting for placement. Review of Systems 10-point ROS is otherwise unremarkable Physical Examination - Vital Signs Temperature: 98.1 F Blood Pressure: 112/52 Pulse: 67 Respirations: 20 Pulse Ox (%): 100 - Physical Exam General: Alert, In no apparent distress, Oriented x3 Respiratory: Clear to auscultation bilaterally, Normal air movement Cardiovascular: Irregular heart rate/rhythm Gastrointestinal: Normal bowel sounds, Soft and benign, Non-distended, No tenderness Musculoskeletal: No clubbing, No swelling, No tenderness Neurological: Sensation intact, Cranial nerves 3-12 intact - Studies Medications List Reviewed: Yes Assessment & Plan - Problems (Diagnosis) (1) Atrial fibrillation with rapid ventricular response Current Visit: Yes Status: Acute (2) DM2 (diabetes mellitus, type 2) Current Visit: Yes Status: Acute (3) HTN (hypertension) Current Visit: Yes Status: Acute (4) Prostate cancer Current Visit: Yes Status: Acute - Plan Plan: Continue with plan of care as mentioned below: 1. Patient with generalized weakness and debility; At this time were working with physical therapy and working with case management to get pt at a [facility] facility. 2. History of atrial fibrillation; rate controlled' comtinue with anticoagulation 3. History of hypertension/type 2 diabetes; strict blood pressure and blood sugar control; monitor volume status and strict BS controlled 4. History of prostate cancer; in remission 5. GI DVT prophylaxis Discharge Plan: Home Plan to discharge in: Greater than 2 days - Advance Directives Does patient have a Living Will: No Does patient have a Durable POA for Healthcare: No - Code Status/Comfort Care Code Status: Full Code Critical Care: No Time Spent Managing PTS Care (In Minutes): 35
--- NOTE | 2023-07-23 05:12 | P.PN ---
Subjective Date of Service: 07/22/23 Patient is doing well with no new complaints. Patient denies any new complaints. Patient does want different food.Patient is clinically stable with no new changes. Unfortunately patient still awaiting for placement. Review of Systems 10-point ROS is otherwise unremarkable Physical Examination - Vital Signs Temperature: 98.1 F Blood Pressure: 112/52 Pulse: 67 Respirations: 20 Pulse Ox (%): 100 - Physical Exam General: Alert, In no apparent distress, Oriented x3 Respiratory: Diminished Cardiovascular: Regular rate/rhythm, Normal S1 S2, Systolic murmur Gastrointestinal: Normal bowel sounds, Soft and benign, Non-distended, No tenderness Musculoskeletal: No clubbing, No swelling Neurological: Sensation intact, Cranial nerves 3-12 intact - Studies Medications List Reviewed: Yes Assessment & Plan - Problems (Diagnosis) (1) Atrial fibrillation with rapid ventricular response Current Visit: Yes Status: Acute (2) DM2 (diabetes mellitus, type 2) Current Visit: Yes Status: Acute (3) HTN (hypertension) Current Visit: Yes Status: Acute (4) Prostate cancer Current Visit: Yes Status: Acute - Plan Plan: Continue with plan of care as mentioned below: 1. Patient with generalized weakness and debility; Continue with physical therapy and arrange for retirement facility placement. 2. History of atrial fibrillation; rate controlled; continue with anticoagulat ion 3. History of hypertension/type 2 diabetes; strict blood pressure and blood sugar control; monitor volume status and strict BS controlled 4. History of prostate cancer; in remission 5. GI DVT prophylaxis Discharge Plan: Home Plan to discharge in: Greater than 2 days - Advance Directives Does patient have a Living Will: No Does patient have a Durable POA for Healthcare: No - Code Status/Comfort Care Code Status: Full Code Critical Care: No Time Spent Managing PTS Care (In Minutes): 35
[2023-07-23] MEDS: INSULIN GLARGINE 100 UNIT/ML SQ SCH (21:07)
[2023-07-23] MEDS: TAMSULOSIN 0.4 MG SR CAP PO SCH (21:09)
--- NOTE | 2023-07-24 04:58 | P.PN ---
Subjective Date of Service: 07/23/23 Patient continues to do well with no new complaints. Patient's clinical symptoms are stable. Patient denies any new complaints. His biggest concern is the food in the cafeteria. He is waiting for placement at this time. Expedited appeal is pending. Review of Systems 10-point ROS is otherwise unremarkable Physical Examination - Vital Signs Temperature: 98.2 F Blood Pressure: 133/64 Pulse: 87 Respirations: 16 Pulse Ox (%): 99 - Physical Exam General: Alert, In no apparent distress, Oriented x3 Respiratory: Clear to auscultation bilaterally, Normal air movement Cardiovascular: Regular rate/rhythm, Normal S1 S2 Gastrointestinal: Normal bowel sounds, Soft and benign, Non-distended, No tenderness Musculoskeletal: No clubbing, No swelling, No tenderness Neurological: Sensation intact, Cranial nerves 3-12 intact - Studies Medications List Reviewed: Yes Assessment & Plan - Problems (Diagnosis) (1) Atrial fibrillation with rapid ventricular response Current Visit: Yes Status: Acute (2) DM2 (diabetes mellitus, type 2) Current Visit: Yes Status: Acute (3) HTN (hypertension) Current Visit: Yes Status: Acute (4) Prostate cancer Current Visit: Yes Status: Acute - Plan Plan: Continue with plan of care as mentioned below: 1. Patient with generalized weakness and debility; Continue with physical therapy and arrange for [facility] facility placement. Expedited appeal is pending. 2. History of atrial fibrillation; rate controlled; continue with anticoagulation and medication for rate control. 3. History of hypertension/type 2 diabetes; strict blood pressure and blood sugar control; monitor volume status and strict BS controlled 4. History of prostate cancer; in remission 5. GI DVT prophylaxis Discharge Plan: [facility] Plan to discharge in: Greater than 2 days - Advance Directives Does patient have a Living Will: No Does patient have a Durable POA for Healthcare: No - Code Status/Comfort Care Code Status: Full Code Critical Care: No Time Spent Managing PTS Care (In Minutes): 25
[2023-07-24] MEDS: INSULIN GLARGINE 100 UNIT/ML SQ SCH (08:28)
--- NOTE | 2023-07-24 10:41 | P.PN ---
Date of Service: 07/24/23 Subjective: stable. in sinus rhythm, rate controlled, HR in 60-70s no further episodes of a-fib. no chest pain pending expedited appeal for SNF 4 BMs reported 2 days ago ROS: 10 point ROS as noted above, otherwise negative Physical Exam: GEN: Alert, oriented, NAD HEENT: Normal conjunctiva, sclera anicteric CV: Regular rate and rhythm, +pansystolic murmur, no edema Pulm: Nonlabored respirations on room air, clear bilaterally ABD: Soft, nontender, nondistended Neuro: Normal speech, normal affect vitals reviewed Problem List: Atrial fibrillation with RVR, on eliquis; new onset Stage 3 sacral pressure ulcer; present on admission IDDM2 Hypertension Debility Atrial fibrillation with RVR, on eliquis; new onset Echo (07/09): 53% EF, moderate diastolic dysfunction, mild TR/MR Cardiology following continue PO amiodarone 200 mg BID continue PO metoprolol; (re)added (07/09) continue eliquis stable for several days Pending SNF appeal Stage 3 sacral pressure ulcer; present on admission Pressure offloading measures. frequent turning q2h continue local wound care. IDDM2 Accu-checks, Sliding scale insulin hyperglycemic - not on his usual tresiba adjusted semglee, better control, may need further titration Hypertension continue home lisinopril hydralazine PRN Debility continue PT VTE: Eliquis Code: Full Dispo: SNF in [place] - near son - Pending appeal ss/cm consulted
[2023-07-24 11:02] LABS: Absolute Eosinophils 0.1 K/uL (0-0.5); Absolute Lymphocytes (CBC) 1.1 K/uL (0.7-4.9); Absolute Monocytes 0.8 K/uL (0.1-1.3); Absolute Neutrophil 4.3 K/uL (1.8-8.0); Basophils % 0.5 % (0-1.3); Eosinophils % 2.1 % (0-4.4); Hematocrit 34.4 % (39.6-49.0); Hemoglobin 11.5 g/dL (13.6-17.9); Lymphocytes % 17.5 % (15.3-44.8); MCH 30.9 pg (27.0-35.0); MCHC 33.5 g/dL (32.0-36.0); MCV 92.2 fL (80-100); MPV 8.8 fL (7.6-11.3); Monocytes % 12.4 % (3.3-12.3); Neutrophils % 67.5 % (41.7-73.7); Platelets 237 thou/uL (152-406); RBC Red Blood Cell Count 3.73 M/uL (4.33-5.43); Red Cell Distribution Width 13.8 % (12.1-15.2)
[2023-07-24 11:19] LABS: Albumin 2.1 g/dL (3.4-5.0); Albumin/Globulin Ratio 0.4 (1.1-1.8); Anion Gap 10.6 mEq/L (5.0-15.0); Bilirubin Total 0.4 mg/dL (0.2-1.0); Globulin 4.7 g/dL (2.3-3.5); Magnesium 2.2 mg/dL (1.6-2.4); Potassium 3.6 mEq/L (3.5-5.1); Protein, Total 6.8 g/dL (6.4-8.2)
[2023-07-25] MEDS: INSULIN GLARGINE 100 UNIT/ML SQ SCH (09:09)
[2023-07-25] MEDS: POTASSIUM CL SA 10 MEQ TAB PO ONE (09:09)
--- NOTE | 2023-07-25 11:55 | P.PN ---
Date of Service: 07/25/23 Subjective: No issues overnight, no changes pending SNF appeal stable ROS: 10 point ROS as noted above, otherwise negative Physical Exam: GEN: Alert, oriented, NAD HEENT: Normal conjunctiva, sclera anicteric CV: Regular rate and rhythm, no edema Pulm: Nonlabored respirations on room air, clear bilaterally ABD: Soft, nontender, nondistended vitals reviewed Problem List: Atrial fibrillation with RVR, on eliquis; new onset Stage 3 sacral pressure ulcer; present on admission IDDM2 Hypertension Debility Atrial fibrillation with RVR, on eliquis; new onset Echo (07/09): 53% EF, moderate diastolic dysfunction, mild TR/MR Cardiology following continue PO amiodarone 200 mg BID continue PO metoprolol; (re)added (07/09) continue eliquis stable for several days Pending SNF appeal Stage 3 sacral pressure ulcer; present on admission Pressure offloading measures. frequent turning q2h continue local wound care. IDDM2 Accu-checks, Sliding scale insulin hyperglycemic - not on his usual tresiba adjusted semglee again, better control, may need further titration Hypertension continue home lisinopril hydralazine PRN Debility continue PT VTE: Eliquis Code: Full Dispo: SNF in [place] - near son - Pending appeal ss/cm consulted
[2023-07-26 08:27] LABS: Anion Gap 8.3 mEq/L (5.0-15.0); Potassium 4.3 mEq/L (3.5-5.1)
--- NOTE | 2023-07-26 20:36 | P.PN ---
Date of Service: 07/26/23 Subjective: No issues overnight, no changes pending appeal BP slightly lower this morning, asymptomatic ROS: 10 point ROS as noted above, otherwise negative Physical Exam: GEN: Alert, oriented, NAD HEENT: Normal conjunctiva, sclera anicteric CV: Regular rate and rhythm, no edema Pulm: Nonlabored respirations on room air, clear bilaterally ABD: Soft, nontender, nondistended vitals reviewed Problem List: Atrial fibrillation with RVR, on eliquis; new onset chronic diastolic CHF, (HFpEF) Stage 3 sacral pressure ulcer; present on admission IDDM2 Hypertension Debility Atrial fibrillation with RVR, on eliquis; new onset chronic diastolic CHF, (HFpEF) Echo (07/09): 53% EF, moderate diastolic dysfunction, mild TR/MR Cardiology following continue PO amiodarone 200 mg BID continue PO metoprolol; (re)added (07/09) continue eliquis stable Pending SNF appeal Stage 3 sacral pressure ulcer; present on admission Pressure offloading measures. frequent turning q2h continue local wound care. IDDM2 Accu-checks, Sliding scale insulin hyperglycemic - not on his usual tresiba adjusted semglee again, better control resume home tresiba at slightly lower dose, titrate on discharge Hypertension continue home lisinopril hydralazine PRN Debility continue PT VTE: Eliquis Code: Full Dispo: SNF in [place] - near son - Pending appeal ss/cm consulted
[2023-07-27 09:11] VITALS: BP 129/65
[2023-07-27 10:30] VITALS: TEMP 98.4; O2SAT 97
--- NOTE | 2023-07-27 12:36 | P.DS ---
Admission Date: 07/07/23 Discharge Date: 07/27/23 Disposition: DC HOME/HOME HEALTH CARE Discharge Condition: GOOD Reason for Admission: Rapid atrial fibrillation Consultations: Cardiology - Dr. Costello / Dr. Dos Santos Brief History of Present Illness: 83yo M, PMH: type 2 diabetes, hypertension, hyperlipidemia Patient came to the ED with complaint of weakness and lethargy. He also had episodes of palpitations. He was put on telemetry and found to have rapid atrial fibrillation and this is new onset. He was started on rate control medication and given therapeutic dose Lovenox and was admitted for control of A-fib and cardiology evaluation. He denied overt episode of chest pain, fever, chills, rigor, nausea, vomiting episode. Hospital Course: Problem List: Atrial fibrillation with RVR, on eliquis; new onset chronic diastolic CHF, (HFpEF) Stage 3 sacral pressure ulcer; present on admission [id number] Hypertension Debility Physician Discharge Instructions: Patient presented with palpitations, weakness, lethargy. Patient was found to have new onset atrial fibrillation with RVR. Troponins were negative. CXR without acute findings. Echo with 53% EF, moderate diastolic dysfunction, mild tricuspid and mitral regurgitation. Cardiology was consulted. Patient was started on an amio drip, and successfully converted into normal sinus rhythm. Patient was transitioned to PO amiodarone/metoprolol however had to be restarted on IV amio 3/13 pm after converting back into a-fib. He was restarted on amio drip per cardiac recommendation and converted back into sinus rhythm, however was discontinued per patients request secondary to arm pain / burning sensation. Patient remained stable on oral amiodarone/metoprolol without further episodes of a-fib. Discussed with cardiology who recommended follow up in office in near future for further management. No further work up. Hospitalization was prolonged secondary to disposition / insurance issues. [place], [place] was [place] and the started the appeal process. While waiting to hear back on the appeal, patient and family were able to locate an assisted living facility with home health to which the patient now preferred over SNF. Patient was feeling better, in normal sinus rhythm with HR in 60-70s, ambulating better, and was deemed sta ble for discharge. Blood pressure was noted to be low to low-normal throughout his hospitalization while on his home lisinopril. Lisinopril was held and patient's blood pressure improved. Advised to continue to hold lisinopril for now. Advised to check blood pressure around the same time each day. If blood pressure is consistently > 130 systolic, can restart lisinopril. Keep daily diary of blood pressure readings to take to your follow up appointment in ~1 week with PCP for further adjustments of medications if needed. 07/22 patient was noted to have some difficulty urinating easily, which improved with bowel movement and after starting flomax. Medications: Eliquis 5 mg twice daily Amiodarone 200 mg twice daily metoprolol 25 mg twice daily tamsulosin 0.4mg at bedtime hold lisinopril for now. Resume tresiba at lower dose 40-45 units daily and slowly titrate back up as needed. Patient has been receiving semglee while hospitalized as we do not carry tresiba in our hospital. Advised to check glucose levels in morning/before lunch/bedtime everyday. Keep daily log of glucose readings to take to PCP follow up appointment for further adjustments of medications. Follow up: PCP in 3-5 days with diary of blood pressure / glucose readings Cardiology in ~1-2 weeks Physical Exam: GEN: Alert, oriented, NAD HEENT: Normal conjunctiva, sclera anicteric CV: Regular rate and rhythm, no edema Pulm: Nonlabored respirations on room air, clear bilaterally ABD: Soft, nontender, nondistended Vital Signs/Physical Exam: Temp Pulse Resp BP Pulse Ox 98.4 F 79 18 129/65 96 07/27/23 08:00 07/27/23 09:08 07/27/23 08:00 07/27/23 09:08 07/27/23 04:00 Laboratory Data at Discharge: WBC 6.40 thou/uL (4.3-10.9) 07/24/23 10:46 Hgb 11.5 g/dL (13.6-17.9) L 07/24/23 10:46 Hct 34.4 % (39.6-49.0) L 07/24/23 10:46 Plt Count 237 thou/uL (152-406) 07/24/23 10:46 PT 13.4 SECONDS (9.5-12.5) H 07/07/23 17:20 INR 1.23 07/07/23 17:20 Sodium 132 mEq/L (136-145) L 07/26/23 07:50 Potassium 4.3 mEq/L (3.5-5.1) 07/26/23 07:50 BUN 19 mg/dL (7-18) H 07/26/23 07:50 Creatinine 1.10 mg/dL (0.70-1.30) 07/26/23 07:50 Glucose 158 mg/dL (74-106) H 07/26/23 07:50 Phosphorus 2.6 mg/dL (2.5-4.9) 07/08/23 14:13 Magnesium 2.2 mg/dL (1.6-2.4) 07/24/23 10:46 Total Bilirubin 0.4 mg/dL (0.2-1.0) 07/24/23 10:46 AST 20 U/L (15-37) 07/24/23 10:46 ALT 11 U/L (16-61) L 07/24/23 10:46 Alkaline Phosphatase 323 U/L (45-117) H 07/24/23 10:46 Home Medications: Insulin Degludec [Tresiba Flextouch U-100] 60 units SQ DAILY 07/08/23 Liraglutide [Victoza 2-Maurice] 1.2 mg SQ DAILY 07/08/23 Amiodarone HCl [Cordarone*] 200 mg PO BID 30 Days #60 tab 07/27/23 Apixaban [Eliquis] 5 mg PO BID 30 Days #60 tab 07/27/23 Docusate [Colace Cap*] 100 mg PO BID 30 Days #60 cap 07/27/23 Metoprolol Tartrate [Lopressor*] 25 mg PO BID 30 Days #60 tab 07/27/23 Tamsulosin [Flomax*] 0.4 mg PO BEDTIME 30 Days #30 cap 07/27/23 New Medications: Docusate [Colace Cap*] 100 mg PO BID 30 Days #60 cap Amiodarone HCl [Cordarone*] 200 mg PO BID 30 Days #60 tab Apixaban [Eliquis] 5 mg PO BID 30 Days #60 tab Tamsulosin [Flomax*] 0.4 mg PO BEDTIME 30 Days #30 cap Metoprolol Tartrate [Lopressor*] 25 mg PO BID 30 Days #60 tab Physician Discharge Instructions: Physician Discharge Instructions: Patient presented with palpitations, weakness, lethargy. Patient was found to have new onset atrial fibrillation with RVR. Troponins were negative. CXR without acute findings. Echo with 53% EF, moderate diastolic dysfunction, mild tricuspid and mitral regurgitation. Cardiology was consulted. Patient was started on an amio drip, and successfully converted into normal sinus rhythm. Patient was transitioned to PO amiodarone/metoprolol however had to be restarted on IV amio 3 pm after converting back into a-fib. He was restarted on amio drip per cardiac recommendation and converted back into sinus rhythm, however was discontinued per patients request secondary to arm pain / burning sensation. Patient remained stable on oral amiodarone/metoprolol without further episodes of a-fib. Discussed with cardiology who recommended follow up in office in near future for further management. No further work up. Hospitalization was prolonged secondary to disposition / insurance issues. [place], however was [place] and the started the appeal process. While waiting to hear back on the appeal, patient and family were able to locate an assisted living facility with home health to which the patient now preferred over SNF. Patient was feeling better, in normal sinus rhythm with HR in 60-70s, ambulating better, and was deemed stable for discharge. Blood pressure was noted to be low to low-normal throughout his hospitalization while on his home lisinopril. Lisinopril was held and patient's blood pressure improved. Advised to continue to hold lisinopril for now. Advised to check blood pressure around the same time each day. If blood pressure is consistently > 130 systolic, can restart lisinopril. Keep daily diary of blood pressure readings to take to your follow up appointment in ~1 week with PCP for further adjustments of medications if needed. 07/22 patient was noted to have some difficulty urinating easily, which improved with bowel movement and after starting flomax. Medications: Eliquis 5 mg twice daily Amiodarone 200 mg twice daily metoprolol 25 mg twice daily tamsulosin 0.4mg at bedtime hold lisinopril for now. Resume tresiba at lower dose 40-45 units daily and slowly titrate back up as needed. Patient has been receiving semglee while hospitalized as we do not carry tresiba in our hospital. Advised to check glucose levels in morning/before lunch/bedtime everyday. Keep daily log of glucose readings to take to PCP follow up appointment for further adjustments of medications. Follow up: PCP in 3-5 days with diary of blood pressure / glucose readings Cardiology in ~1-2 weeks Discharge to Assisted Living Facility: [facility] [address] [address] P: (Jacque) [phone] Home Health services will be provided by: [facility] P:[phone] F: [phone] Pharmacy: [facility] [address] [place] [id number] P: [phone] Followup: NONE,NONE [Primary Care Provider] - Jacinto Costello MD [ACTIVE - CAN ADMIT] - Time spent managing pt's care (in minutes): 45
== END 2023-07-27 13:51 | disposition home health service (06) | DRG 308 ==
LOC: ER 16:20 → ERHOLD 20:32 → 3RD-ICU 21:10 → 4TH 07-12 10:59
PROVIDERS: ADMIT Internal Medicine Nephrology; ATTEND Hospitalist
DX: I48.19 Other persistent atrial fibrillation (principal); L89.153 Pressure ulcer of sacral region, stage 3; I50.32 Chronic diastolic (congestive) heart failure; I11.0 Hypertensive heart disease with heart failure; E78.5 Hyperlipidemia, unspecified; E11.65 Type 2 diabetes mellitus with hyperglycemia; I08.1 Rheumatic disorders of both mitral and tricuspid valves; Z79.4 Long term (current) use of insulin; Z79.01 Long term (current) use of anticoagulants; Z85.46 Personal history of malignant neoplasm of prostate; Z11.52 Encounter for screening for COVID-19; Z79.899 Other long term (current) drug therapy
CPT/HCPCS: 36415; 71045; 80048; 80053; 80076; 81001; 82947; 83036; 83605; 83735; 83880; 84100; 84439; 84443; 84484; 85025; 85027; 85610; 87040; 87804; 87811; 93005; 93306; 96372; 97116; 97161; 97530; 99285; J0282; J0360; J1160; J1650; J1815; J2405; J3010; J3475; J7030; J7060